=== PATIENT | male | born 1970 | race Caucasian/White ===

== ENCOUNTER 2020-08-04 06:31 | Outpatient (REF) | payer OTHER, SELFPAY | END 2020-08-04 06:32 | disposition home or self-care (01) | LOC: HO.LAB 06:31 | PROVIDERS: Visit Provider Internal Medicine | DX: Z20.828 Contact with and (suspected) exposure to other viral communicable diseases (principal) | CPT/HCPCS: C9803; U0003 ==

== ENCOUNTER → 2021-12-31 14:44 | Outpatient (BNVA) | payer OTHER, SELFPAY | PROVIDERS: PCP Internal Medicine; Visit Provider Urology | DX: Z13.89 Encounter for screening for other disorder (principal) ==

== ENCOUNTER 2024-04-08 20:25 | Emergency (ER) | payer OTHER, BC, SELFPAY ==
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
[2024-04-08 20:27] VITALS: BP 90/61; PULSE 91; RESP 18; TEMP 36.9; O2SAT 92; BMI 29.1
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
[2024-04-08 20:47] LABS: Basophils Absolute Auto 0.1 X10*3/uL (0.0-0.2); Basophils Percent Auto 0.6 % (0-2); Eosinophils Absolute Auto 0.3 X10*3/uL (0.0-0.4); Eosinophils Percent Auto 2.7 % (0-4); Hematocrit 43.6 % (42.0-52.0); Hemoglobin 15.4 g/dl (14.0-18.0); Imm Gran Abs Auto 0.15 X10*3/uL (0.00-0.03); Imm Gran Pct Auto 1.3 % (0.0-0.4); Lymphocytes Absolute Auto 5.2 X10*3/uL (1.2-4.9); Lymphocytes Percent Auto 45.5 % (20-40); MANUAL DIFF FLAG SCAN; Mean Corpuscular HGB Conc 35.3 g/dl (31.0-36.0); Mean Corpuscular Volume 87.9 fL (80.0-98.0); Monocytes Absolute Auto 0.8 X10*3/uL (0.1-1.2); Monocytes Percent Auto 6.6 % (2-11); Neutrophils Absolute Auto 4.9 x10*3/uL (2.0-8.3); Neutrophils Percent Auto 43.3 % (45-73); Platelet Count 337 X10*3/uL (160-400); Red Blood Count 4.96 X10*6/uL (4.60-5.80); Red Cell Distribution Width 12.5 % (11.0-16.0); SCAN SMEAR FLAG 1; White Blood Count 11.3 X10*3/uL (4.8-10.8)
[2024-04-08] MEDS: Acetaminophen 325 MG TABLET 975 MG PO (20:55)
[2024-04-08 21:04] LABS: SLIDE REVIEW VERIFIED
[2024-04-08 21:50] LABS: Alanine Aminotransferase 57 U/L (0-40); Albumin Level 4.4 g/dL (3.5-5.0); Alkaline Phosphatase 73 U/L (39-117); Anion Gap 16 (12-20); Aspartate Amino Transferase 70 U/L (5-37); Bilirubin Direct 0.2 mg/dL (0.0-0.5); Bilirubin Total 0.3 mg/dL (0.0-1.0); Blood Urea Nitrogen 14 mg/dL (9-16); Calcium 9.4 mg/dL (8.4-10.2); Carbon Dioxide 24 mmol/L (22-29); Chloride 105 mmol/L (96-108); Creatinine Clr Calc Pharmacy 66.7; Estimated Glomerular Filt Rate 60; Glucose Random 115 mg/dL (60-115); Potassium 3.9 mmol/L (3.3-5.1); Sodium 141 mmol/L (135-145); Total Protein 7.2 g/dL (6.5-8.0)
[2024-04-08] MEDS: iohexoL 350 MG/ML 100 ML INFUS..BTL 85 ML IV (22:24)
[2024-04-09 00:22] VITALS: BP 109/50; PULSE 94; RESP 18; TEMP 36.9; O2SAT 94
[2024-04-09 00:25] VITALS: BP 109/50; PULSE 94; RESP 20; TEMP 36.9; O2SAT 94
== END 2024-04-09 00:28 | disposition home or self-care (01) ==
PROVIDERS: Emergency Provider Emergency Medicine; PCP Physician Assistant Medical
DX: S42.002A Fracture of unspecified part of left clavicle, initial encounter for closed fracture (principal); R51.9 Headache, unspecified; M54.2 Cervicalgia; R07.89 Other chest pain; R10.30 Lower abdominal pain, unspecified; V29.99XA Rider (driver) (passenger) of other motorcycle injured in unspecified traffic accident, initial encounter; Y93.89 Activity, other specified; Y92.488 Other paved roadways as the place of occurrence of the external cause; Y99.8 Other external cause status; Z79.899 Other long term (current) drug therapy
CPT/HCPCS: 36415; 70450; 71260; 72125; 74177; 80048; 80076; 85025; 99285; Q9967

== ENCOUNTER 2024-04-10 10:17 | Outpatient (REF) | payer OTHER, BC, SELFPAY ==
--- NOTE | ~2024-04-10 | XR_ITS ---
EXAMINATION: XR CLAVICLE, LEFT CLINICAL INFORMATION: Clavicular fracture. COMPARISON: CT chest dated 03/31/2024. TECHNIQUE: Straight AP and cephalad angulated AP views of the left clavicle. FINDINGS: There is a comminuted, displaced fracture of the distal left clavicle, with butterfly fragment. The distal clavicle fragment is inferiorly displaced by approximately 1.8 cm. The glenohumeral, acromioclavicular and coracoclavicular joints are intact. No soft tissue calcifications foreign body is seen. There is no left pneumothorax. XR/XR clavicle LT IMPRESSION: A comminuted, displaced fracture is seen of the distal left clavicle.
== END 2024-04-10 10:18 | disposition home or self-care (01) ==
LOC: HO.HOSX 10:17
PROVIDERS: Visit Provider Physician Assistant
DX: S42.009A Fracture of unspecified part of unspecified clavicle, initial encounter for closed fracture (principal)
CPT/HCPCS: 73000

== ENCOUNTER 2024-04-10 10:36 | Outpatient (AMB) | payer OTHER, BC, SELFPAY ==
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
[2024-04-10 10:54] VITALS: BMI 28.3
== END 2024-04-10 11:12 | disposition home or self-care (01) ==
PROVIDERS: PCP Physician Assistant Medical; Visit Provider Physician Assistant
DX: S42.002A Fracture of unspecified part of left clavicle, initial encounter for closed fracture (principal)
CPT/HCPCS: 99204